=== PATIENT | female | born 1995 | race Caucasian/White ===

== ENCOUNTER 2018-08-02 18:02 | Emergency (ER) | payer OTHER ==
[2018-08-02 18:11] VITALS: RESP 16
[2018-08-02] MEDS ORDERED: SODIUM CHLORIDE 0.9% 1,000 ML IV STA (18:54)
[2018-08-02] MEDS ORDERED: ONDANSETRON 4 MG/2 ML VIAL IVP STA (19:20)
[2018-08-02 19:27] LABS: Basophils # (A) 0.1 k/uL (0-0.2); Basophils % (A) 1 %; Eosinophils # (A) 0.2 k/uL (0-0.7); Eosinophils % (A) 2 %; HCT 38.3 % (34.0-46.0); Lymphocytes # (A) 2.4 k/uL (1.0-4.8); Lymphocytes % (A) 23 %; MCV 91.2 fL (80.0-100.0); Mean Platelet Volume 7.1; Monocytes # (A) 0.6 k/uL (0-1.0); Monocytes % (A) 6 %; Neutrophils # (A) 6.8 k/uL (1.3-7.7); Neutrophils % (A) 65 %; Platelet Count 339 k/uL (150-450); RDW 12.9 % (11.5-15.5); WBC 10.4 k/uL (3.8-10.6)
[2018-08-02 19:35] LABS: ALT 28 U/L (9-52); AST 20 U/L (14-36); Albumin 4.2 g/dL (3.5-5.0); Alkaline Phosphatase 46 U/L (38-126); Anion Gap 9 mmol/L; Blood Urea Nitrogen 12 mg/dL (7-17); Calcium 9.7 mg/dL (8.4-10.2); Carbon Dioxide 25 mmol/L (22-30); Chloride 105 mmol/L (98-107); Glucose 82 mg/dL (74-99); Potassium 4.2 mmol/L (3.5-5.1); Sodium 139 mmol/L (137-145); Total Bilirubin 0.5 mg/dL (0.2-1.3); Total Protein 7.4 g/dL (6.3-8.2)
--- NOTE | 2018-08-02 20:14 | ED ---
General Adult HPI - General Chief complaint: Nausea/Vomiting/Diarrhea Stated complaint: 10wks preg, vomiting Time Seen by Provider: 08/02/18 18:28 Source: patient, RN notes reviewed Mode of arrival: ambulatory Limitations: no limitations - History of Present Illness Initial comments: 22-year-old female currently 10 weeks presents for a chief complaint of nausea and vomiting 2 days. Patient states she has vomited 6 times today. She is unable to keep down solid foods but has been able to keep down liquids. Patient also states she has lower abdominal cramping or significant pain. She denies any vaginal bleeding. Patient has not had a confirmed intrauterine . Patient has seen OB for this and is taking vitamins. Patient states her CHIEF PROGRAM OFFICER Dr. Griffin did give her a prescription for Zofran but she could not get it filled due to her insurance. Patient has no other complaints at this time including shortness of breath, chest pain, headache, or visual changes. - Related Data Home Medications Medication Instructions Recorded Confirmed No Known Home Medications 08/02/18 08/02/18 Allergies Allergy/AdvReac Type Severity Reaction Status Date / Time benzoyl peroxide Allergy Rash/Hives Verified 08/02/18 18:53 Review of Systems ROS Statement: Those systems with pertinent positive or pertinent negative responses have been documented in the HPI. ROS Other: All systems not noted in ROS Statement are negative. Past Medical History Past Medical History: Asthma Additional Past Medical History / Comment(s): hx. gastroschisis, having abd. pain, N/V @times, decreased appetite recently History of Any Multi-Drug Resistant Organisms: None Reported Additional Past Surgical History / Comment(s): plastic surgery for abdominal scarring, gastroschisis repair Past Anesthesia/Blood Transfusion Reactions: No Reported Reaction Past Psychological History: No Psychological Hx Reported Smoking Status: Current every day smoker Past Alcohol Use History: None Reported Past Drug Use History: None Reported - Past Family History Mother Family Medical History: No Reported History General Exam Limitations: no limitations General appearance: alert, in no apparent distress Head exam: Present: atraumatic, normocephalic, normal inspection Eye exam: Present: normal appearance, PERRL, EOMI. Absent: scleral icterus, conjunctival injection, periorbital swelling ENT exam: Present: normal exam, mucous membranes moist Neck exam: Present: normal inspection, full ROM. Absent: tenderness, meningismus, lymphadenopathy Respiratory exam: Present: normal lung sounds bilaterally. Absent: respiratory distress, wheezes, rales, rhonchi, stridor Cardiovascular Exam: Present: regular rate, normal rhythm, normal heart sounds. Absent: systolic murmur, diastolic murmur, rubs, gallop, clicks GI/Abdominal exam: Present: soft, normal bowel sounds. Absent: distended, tenderness (No significant tenderness on exam, no guarding or rebound. Abdomen is soft.), guarding, rebound, rigid Neurological exam: Present: alert, oriented X3, CN II-XII intact Psychiatric exam: Present: normal affect, normal mood Course Vital Signs 08/02/18 18:09 Temperature 99.4 F Pulse Rate 94 Respiratory 16 Rate Blood Pressure 129/63 O2 Sat by Pulse 99 Oximetry Medical Decision Making - Medical Decision Making 22-year-old female presents to the emergency department for a chief complaint of nausea and vomiting. Patient is a currently 10 weeks . Patient has seen CHIEF PROGRAM OFFICER but has not yet had an ultrasound or confirmed IUP. She is also complaining about cramping. Patient states her CHIEF PROGRAM OFFICER called her in some Zofran but she could not fill this due to her insurance. I did discuss the patient that no medications are 100% safe during for nausea the patient would prefer to have Zofran at this time. This was given. Patient is not actively vomiting, by mouth challenge past. CBC and CMP are unremarkable. Urine does not show an significant evidence of infection but will be cultured. Ultrasound shows a viable intrauterine with a heart rate of 165 corresponding with 10 week 1 day. Patient will follow up with her CHIEF PROGRAM OFFICER doctor Elias for nausea control and return if she has any worsening symptoms. - Lab Data Result diagrams: 08/02/18 19:06 08/02/18 19:06 Lab Results 08/02/18 08/02/18 08/02/18 Range/Units 19:06 19:06 20:14 WBC 10.4 (3.8-10.6) k/uL RBC 4.20 (3.80-5.40) m/uL Hgb 13.0 (11.4-16.0) gm/dL Hct 38.3 (34.0-46.0) % MCV 91.2 (80.0-100.0) fL MCH 31.0 (25.0-35.0) pg MCHC 34.0 (31.0-37.0) g/dL RDW 12.9 (11.5-15.5) % Plt Count 339 (150-450) k/uL Neutrophils % 65 % Lymphocytes % 23 % Monocytes % 6 % Eosinophils % 2 % Basophils % 1 % Neutrophils # 6.8 (1.3-7.7) k/uL Lymphocytes # 2.4 (1.0-4.8) k/uL Monocytes # 0.6 (0-1.0) k/uL Eosinophils # 0.2 (0-0.7) k/uL Basophils # 0.1 (0-0.2) k/uL Sodium 139 (137-145) mmol/L Potassium 4.2 (3.5-5.1) mmol/L Chloride 105 (98-107) mmol/L Carbon Dioxide 25 (22-30) mmol/L Anion Gap 9 mmol/L BUN 12 (7-17) mg/dL Creatinine 0.50 L (0.52-1.04) mg/dL Est GFR (CKD-EPI)AfAm >90 (>60 ml/min/1.73 sqM) Est GFR (CKD-EPI)NonAf >90 (>60 ml/min/1.73 sqM) Glucose 82 (74-99) mg/dL Calcium 9.7 (8.4-10.2) mg/dL Total Bilirubin 0.5 (0.2-1.3) mg/dL AST 20 (14-36) U/L ALT 28 (9-52) U/L Alkaline Phosphatase 46 (38-126) U/L Total Protein 7.4 (6.3-8.2) g/dL Albumin 4.2 (3.5-5.0) g/dL HCG, Quant 45365.0 mIU/mL Urine Color Yellow Urine Appearance Cloudy H (Clear) Urine pH 6.5 (5.0-8.0) Ur Specific [place] 1.018 (1.001-1.035) Urine Protein Negative (Negative) Urine Glucose (UA) Negative (Negative) Urine Ketones Negative (Negative) Urine Blood Negative (Negative) Urine Nitrite Negative (Negative) Urine Bilirubin Negative (Negative) Urine Urobilinogen <2.0 (<2.0) mg/dL Ur Leukocyte Esterase Negative (Negative) Urine RBC 1 (0-5) /hpf Urine WBC 7 H (0-5) /hpf Ur Squamous Epith Cells 3 (0-4) /hpf Urine Mucus Few H (None) /hpf Disposition Clinical Impression: Nausea and vomiting during , Abdominal pain affecting Disposition: HOME SELF-CARE Condition: Good Instructions (If sedation given, give patient instructions): Nausea and Vomiting in (ED), Abdominal Pain in (ED) Additional Instructions: Please follow up with primary care and CHIEF PROGRAM OFFICER in 1-2 days. Please return to the emergency department if you have any worsening symptoms. Is patient prescribed a controlled substance at d/c from ED?: No Referrals: Tianna Akhtar MD [Primary Care Provider] - 1-2 days Savannah Griffin MD [REFERRING] - 1-2 days Time of Disposition: 20:43
[2018-08-02 20:21] LABS: Appearance,Urine Cloudy (Clear); Bilirubin,Urine Negative (Negative); Blood,Urine Negative (Negative); Color,Urine Yellow; Glucose,Urine (UA) Negative (Negative); Ketones,Urine Negative (Negative); Leukocyte Esterase,Urine Negative (Negative); Mucus,Urine Few /hpf; Nitrite,Urine Negative (Negative); PH, Urine 6.5 (5.0-8.0); Protein,Urine Negative (Negative); RBC,Urine 1 /hpf (0-5); Specific Gravity,Urine 1.018 (1.001-1.035); Squamous Epithelial Cell,Urine 3 /hpf (0-4); Urobilinogen,Urine <2.0 mg/dL (<2.0); WBC,Urine 7 /hpf (0-5)
--- NOTE | 2018-08-02 20:33 | US ---
EXAMINATION TYPE: Transabdominal DATE OF EXAM: 10/13/17 COMPARISON: NONE CLINICAL HISTORY: Pain. Vomiting EXAM PERFORMED: Transabdominal (TA) EXAM MEASUREMENTS: GESTATIONAL AGE / DATING Physician Established: Not yet established Dates by LMP: LMP unknown Dates by First Scan: No previous this is first scan ( Dates by Current Scan for: (10 weeks/1 days) EDC: 02/27/2019 MATERNAL ANATOMY Uterus: 11.4 x 6.4 x 7.5 cm RT ovary: 3.0 x 1.8 x 1.7cm. LT ovary: 3.5 x 2.5 x 2.9 cm. Post CDS / Adnexa: wnl Presence of free fluid: no Presence of corpus luteal cyst: Yes left ovary 2.3 x 1.4 x 1.7cm. GESTATION / SURVEY CRL: 3.31 cm 10w1d IUP: Viable IUP Beta HcG (if available): Not available at this time IMPRESSION: VIABLE IUP WITH HR 165 BPM, CORRESPONDING WITH 10W 1D, WITH CARY 02/27/2019.
[2018-08-02 21:32] VITALS: BP 118/66; PULSE 72; TEMP 97.5
== END 2018-08-02 21:34 | disposition home or self-care (01) ==
LOC: EC 18:02
DX: O21.9 Vomiting of pregnancy, unspecified (principal); O99.89 Other specified diseases and conditions complicating pregnancy, childbirth and the puerperium; R10.30 Lower abdominal pain, unspecified; R19.7 Diarrhea, unspecified; O99.331 Smoking (tobacco) complicating pregnancy, first trimester; F17.200 Nicotine dependence, unspecified, uncomplicated; Z3A.10 10 weeks gestation of pregnancy; Z88.8 Allergy status to other drugs, medicaments and biological substances; Z87.738 Personal history of other specified (corrected) congenital malformations of digestive system; Z98.890 Other specified postprocedural states
CPT/HCPCS: 36415; 80053; 85025; 81001; 84702; 76801; 99284; 96374; 96361 ×2; J2405

== ENCOUNTER 2018-08-14 11:59 | Emergency (ER) | payer OTHER ==
[2018-08-14 12:05] VITALS: RESP 18
[2018-08-14] MEDS ORDERED: ALBUTEROL NEBULIZED 2.5 MG/3 ML INHALATION STA (12:11)
--- NOTE | 2018-08-14 12:14 | ED ---
URI HPI - General Chief Complaint: Upper Respiratory Infection Stated Complaint: Cough, vomiting Time Seen by Provider: 08/14/18 12:05 Source: patient, RN notes reviewed Mode of arrival: ambulatory Limitations: no limitations - History of Present Illness Initial Comments: 22-year-old female presents emergency Department chief complaint cough congestion body aches. Patient states symptoms started 2 days ago. Patient states that she aches all over. Patient states that she's been taken Tylenol at home no [id number] cough and cold medications no sick contacts. Denies any neck pain, neck stiffness, sore throat. She does have a large amount nasal congestion. Patient states that she's felt febrile home but has been taken Tylenol. - Related Data Home Medications Medication Instructions Recorded Confirmed Rbb-Mgdx-Rgovg Acid 1 cap PO AC-LUNCH 08/14/18 08/14/18 [-U Capsule (formulary)] Allergies Allergy/AdvReac Type Severity Reaction Status Date / Time benzoyl peroxide Allergy Rash/Hives Verified 08/14/18 12:31 Review of Systems ROS Statement: Those systems with pertinent positive or pertinent negative responses have been documented in the HPI. ROS Other: All systems not noted in ROS Statement are negative. Past Medical History Past Medical History: Asthma Additional Past Medical History / Comment(s): hx. gastroschisis, having abd. pain, N/V @times, decreased appetite recently History of Any Multi-Drug Resistant Organisms: None Reported Additional Past Surgical History / Comment(s): plastic surgery for abdominal scarring, gastroschisis repair Past Anesthesia/Blood Transfusion Reactions: No Reported Reaction Past Psychological History: No Psychological Hx Reported Smoking Status: Current every day smoker Past Alcohol Use History: None Reported Past Drug Use History: None Reported - Past Family History Mother Family Medical History: No Reported History General Exam Limitations: no limitations General appearance: alert, in no apparent distress Head exam: Present: atraumatic, normocephalic, normal inspection Eye exam: Present: normal appearance, PERRL, EOMI. Absent: scleral icterus, conjunctival injection, periorbital swelling ENT exam: Present: normal exam, normal oropharynx, mucous membranes moist, TM's normal bilaterally, normal external ear exam Neck exam: Present: normal inspection, full ROM. Absent: tenderness, meningismus, lymphadenopathy Respiratory exam: Present: normal lung sounds bilaterally. Absent: respiratory distress, wheezes, rales, rhonchi, stridor Cardiovascular Exam: Present: regular rate, normal rhythm, normal heart sounds. Absent: systolic murmur, diastolic murmur, rubs, gallop, clicks GI/Abdominal exam: Present: soft, normal bowel sounds. Absent: distended, tenderness, guarding, rebound, rigid Neurological exam: Present: alert, oriented X3, CN II-XII intact Skin exam: Present: warm, dry, intact, normal color. Absent: rash Course Vital Signs 08/14/18 12:03 Temperature 98.0 F Pulse Rate 91 Respiratory 18 Rate Blood Pressure 113/79 O2 Sat by Pulse 99 Oximetry Medical Decision Making - Medical Decision Making 22-year-old female presents emergency Department for cough congestion. Patient has influenza A positive. Chest x-ray obtained no acute abnormality. Patient was counseled in detail greater than 3 minutes were smoking sensation. Return parameters were discussed. - Lab Data Lab Results 08/14/18 Range/Units 12:30 Influenza Type A RNA Detected H (Not Detectd) Influenza Type B (PCR) Not Detected (Not Detectd) Disposition Clinical Impression: Influenza Disposition: HOME SELF-CARE Condition: Stable Instructions (If sedation given, give patient instructions): Influenza (ED) Additional Instructions: Please return to the Emergency Department if symptoms worsen or any other concerns. Is patient prescribed a controlled substance at d/c from ED?: No Referrals: None,Stated [Primary Care Provider] - 1-2 days Time of Disposition: 13:20
--- NOTE | 2018-08-14 12:21 | XR ---
EXAMINATION TYPE: XR chest 2V DATE OF EXAM: 08/14/2018 COMPARISON: Chest x-ray March 18, 2015. HISTORY: Cough and flulike symptoms for 3 days. TECHNIQUE: Frontal and lateral views of the chest are obtained. FINDINGS: There is no focal air space opacity, pleural effusion, or pneumothorax seen. The cardiac silhouette size is within normal limits. The osseous structures are intact. IMPRESSION: No suspicious new acute pulmonary process.
[2018-08-14 14:04] VITALS: BP 110/72; PULSE 78; TEMP 98.2
== END 2018-08-14 13:55 | disposition home or self-care (01) ==
LOC: EC 11:59
DX: O99.511 Diseases of the respiratory system complicating pregnancy, first trimester (principal); J10.1 Influenza due to other identified influenza virus with other respiratory manifestations; Z71.6 Tobacco abuse counseling; J45.909 Unspecified asthma, uncomplicated; O99.331 Smoking (tobacco) complicating pregnancy, first trimester; F17.200 Nicotine dependence, unspecified, uncomplicated; Z88.1 Allergy status to other antibiotic agents; Z3A.12 12 weeks gestation of pregnancy
CPT/HCPCS: 71046; 87502; 94640; 99284; 99406

== ENCOUNTER 2018-12-23 21:31 | Emergency (ER) | payer OTHER ==
[2018-12-23 21:38] VITALS: RESP 16; TEMP 97.5
[2018-12-23] MEDS ORDERED: ACETAMINOPHEN TAB 325 MG TAB PO STA (22:25)
--- NOTE | 2018-12-23 23:08 | XR ---
History: ITS.REASON XR Reason: Pain Exam: XR RIGHT FOOT 3 views Comparison: None available FINDINGS: Bipartite appearing medial first metatarsal sesamoid may represent fracture or development variant, clinically correlate. Otherwise no evidence of fracture or dislocation. 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 IMPRESSION: Bipartite appearing medial first metatarsal sesamoid may represent fracture or development variant, clinically correlate. Otherwise no evidence of fracture or dislocation.
[2018-12-23 23:15] VITALS: BP 101/68; PULSE 98
--- NOTE | 2018-12-23 23:27 | ED ---
General Adult HPI - General Chief complaint: Extremity Injury, Lower Stated complaint: R foot pain Time Seen by Provider: 12/23/18 21:53 Source: patient, RN notes reviewed, old records reviewed Mode of arrival: ambulatory Limitations: no limitations - History of Present Illness Initial comments: 23-year-old female patient with no pertinent past medical history, , 30 weeks gestation parents ED with right foot pain. Patient worse this been ongoing for approximately 1 week. Patient denies any injury. Patient denies any abdominal pain any vaginal bleeding a nausea vomiting diarrhea, chest pain shortness of breath. Systemic: Pt denies fatigue, fever/chills, rash. Pt denies weakness, night sweats, weight loss. Neuro: Pt denies headache, visual disturbances, syncope or pre-syncope. HEENT: Pt denies ocular discharge or irritation, otalgia, rhinorrhea, pharyngitis or notable lymphadenopathy. Cardiopulmonary: Pt denies chest pain, SOB, heart palpitations, dyspnea on exertion. Abdominal/GI: Pt denies abdominal pain, n/v/d. : Pt denies dysuria, burning w/ urination, frequency/urgency. Denies new onset urinary or bowel incontinence. MSK: Pt denies loss of strength or function in extremities. Neuro: Pt denies new onset weakness, paresthesias. - Related Data Home Medications Medication Instructions Recorded Confirmed Mrx-Ejfr-Egapn Acid 1 cap PO AC-LUNCH 08/14/18 08/14/18 [-U Capsule (formulary)] Allergies Allergy/AdvReac Type Severity Reaction Status Date / Time benzoyl peroxide Allergy Rash/Hives Verified 12/23/18 21:38 Review of Systems ROS Statement: Those systems with pertinent positive or pertinent negative responses have been documented in the HPI. ROS Other: All systems not noted in ROS Statement are negative. Past Medical History Past Medical History: Asthma Additional Past Medical History / Comment(s): hx. gastroschisis, having abd. pain, N/V @times, decreased appetite recently History of Any Multi-Drug Resistant Organisms: None Reported Additional Past Surgical History / Comment(s): plastic surgery for abdominal s carring, gastroschisis repair Past Anesthesia/Blood Transfusion Reactions: No Reported Reaction Past Psychological History: No Psychological Hx Reported Smoking Status: Former smoker Past Alcohol Use History: None Reported Past Drug Use History: None Reported - Past Family History Mother Family Medical History: No Reported History General Exam - General Exam Comments Initial Comments: Constitutional: NAD, AOX3, Pt has pleasant affect. HEENT: NC/AT, trachea midline, neck supple, no lymphadenopathy. Posterior pharynx non erythematous, without exudates. External ears appear normal, without discharge. Mucous membranes moist. Eyes PERRLA, EOM intact. There is no scleral icterus. No pallor noted. Cardiopulmonary: RRR, no murmurs, rubs or gallops, no JVD noted. Lungs CTAB in anterior and posterior singh. No peripheral edema. Abdominal exam: Abdomen soft and non-distended. Abdomen non-tender to palpation in all 4 quadrants. Bowel sounds active in LLQ. No hepatosplenomegaly. No ecchymosis Neuro: CN II-XII grossly intact. No nuchal rigidity. No raccon eyes, no pittman sign, no hemotympanum. No cervical spinal tenderness. MSK: Right Anterior midfoot mildly tender to palpation. No erythema, no ecchymoses. Distal pulses intact and equal. Capillary refill less than 2 seconds. No tibia-fibula tenderness. No posterior calf tenderness bilaterally, homans sign negative bilaterally. Posterior tibialis and radial pulse +2 bilaterally. Sensation intact in upper and lower extremities. Full active ROM in upper and lower extremities, 5/5 stregnth. Limitations: no limitations Course Vital Signs 12/23/18 12/23/18 21:36 23:14 Temperature 97.5 F L Pulse Rate 129 H 98 Respiratory 16 16 Rate Blood Pressure 122/77 101/68 O2 Sat by Pulse 98 99 Oximetry Medical Decision Making - Medical Decision Making 23-year-old female patient with no pertinent past medical history, , 30 weeks gestation parents ED with right foot pain. Patient worse this been ongoing for approximately 1 week. Patient denies any injury. Patient denies any abdominal pain any vaginal bleeding a nausea vomiting diarrhea, chest pain shortness of breath. Patient vital signs initially display tachycardia likely secondary to pain. Patient reported that she is just in pain after walking. Repeat heart rate displayed heart rate of 84. Vital signs stable at discharge. Physical exam displayed: Right Anterior midfoot mildly tender to palpation. No erythema, no ecchymoses. Distal pulses intact and equal. Capillary refill less than 2 seconds. No tibia-fibula tenderness. Plain film of foot displayed bipartite appearance of medial first metatarsal sesamoid may represent fracture or development variant. Otherwise no evidence of fracture dislocation. She is not tender in this region. Patient placed in postop walking shoe. Patient will be discharged with orthopedic follow-up. Patient will return to ER if patient worsens. Case discussed with Dr. White. Disposition Clinical Impression: Arthralgia Disposition: HOME SELF-CARE Condition: Stable Instructions (If sedation given, give patient instructions): Foot Sprain (ED) Additional Instructions: Patient to adhere to previously discussed treatment plan and will take medication(s) as directed. Patient to follow up with PCP in 1-2 days. Patient to return to ED if symptoms do not improve. Follow-up with primary care provider orthopedic consult 1-2 days. Return to ER if condition worsens in any way. Is patient prescribed a controlled substance at d/c from ED?: No Referrals: None,Stated [Primary Care Provider] - 1-2 days Jose Chavez DO [Medical Doctor] - 1-2 days
== END 2018-12-23 23:54 | disposition home or self-care (01) ==
LOC: EC 21:31
DX: O99.89 Other specified diseases and conditions complicating pregnancy, childbirth and the puerperium (principal); M79.671 Pain in right foot; Z3A.30 30 weeks gestation of pregnancy; Z87.891 Personal history of nicotine dependence; Z88.8 Allergy status to other drugs, medicaments and biological substances
CPT/HCPCS: 99284

== ENCOUNTER → 2022-03-12 | Outpatient (CLI) | payer OTHER ==
--- NOTE | 2022-03-12 15:56 | US ---
EXAMINATION TYPE: US OB >= 14 wk fetus DATE OF EXAM: 03/12/2022 COMPARISON: None CLINICAL HISTORY: [id number] EFW TECHNIQUE: Transabdominal (TA) GESTATIONAL AGE / DATING Physician Established: (35 weeks/1 days) EDC: 04/15/2022 Dates by LMP: LMP unknown Dates by First Scan: No previous here Dates by Current Scan: (35 weeks/5 days) EDC: 04/11/2022 SURVEY IUP: Single PLACENTA: Posterior PREVIA: No Previa RICHARD: 12.4 cm Normal CERVICAL LENGTH (transabdominal: norm > 3.0cm): 3.6 cm BIOMETRY PRESENTATION: Vertex LIE: Longitudinal BPD: 8.5 cm 34 weeks / 3 days HC: 32.6 cm 37 weeks / 0 days AC: 31.7 cm 35 weeks / 5 days FL: 6.9 cm 35 weeks / 2 days ESTIMATED WEIGHT IN GRAMS: 2690 grams ESTIMATED WEIGHT IN LBS/OZ: 5 lbs. 15 oz. WEIGHT PERCENTAGE BASED ON ESTABLISHED DATES: 58% HC/AC: 1.03 Normal FL/AC: 22% Normal HEART RATE: 152 bpm RHYTHM: Normal IMPRESSION: Single viable uterine .
== END | disposition home or self-care (01) ==
LOC: RADUSWWP 15:01
PROVIDERS: ATTEND Obstetrics & Gynecology
DX: O36.5939 Maternal care for other known or suspected poor fetal growth, third trimester, other fetus (principal); Z3A.35 35 weeks gestation of pregnancy
CPT/HCPCS: 76805

== ENCOUNTER 2024-01-27 10:09 | Emergency (ER) | payer OTHER ==
[2024-01-27 10:17] VITALS: TEMP 98
--- NOTE | 2024-01-27 10:23 | ED ---
Female Urogenital HPI - General Chief complaint: Vaginal Bleeding Stated complaint: 8 wks preg,bleeding Time Seen by Provider: 01/27/24 10:17 Source: patient, RN notes reviewed Mode of arrival: ambulatory Limitations: no limitations - History of Present Illness Initial comments: 28-year-old female presents emergency department chief complaint of vaginal bleeding early . Patient states she has some spotting 2 weeks ago which subsided she has had a few other episodes where it starts and stops. She denies any significant pain she has minimal cramping patient is G6, proximately 8 weeks she states she called her SPECIAL EQUIPMENT TECHNICIAN out of [place] who advised her to be seen in the emergency department. Patient denies any dysuria or any other associated symptoms patient is A+ blood type - Related Data Home Medications Medication Instructions Recorded Confirmed Yjo-Ulna-Bzaoo Acid 1 cap PO AC-LUNCH 08/14/18 08/14/18 [-U Capsule (formulary)] Allergies Allergy/AdvReac Type Severity Reaction Status Date / Time benzoyl peroxide Allergy Rash/Hives Verified 01/27/24 10:18 latex Allergy Rash/Hives Verified 01/27/24 10:18 Penicillins Allergy Rash/Hives Verified 01/27/24 10:18 Review of Systems ROS Statement: Those systems with pertinent positive or pertinent negative responses have been documented in the HPI. ROS Other: All systems not noted in ROS Statement are negative. Past Medical History Past Medical History: Asthma Additional Past Medical History / Comment(s): hx. gastroschisis, having abd. louann n, N/V @times, decreased appetite recently History of Any Multi-Drug Resistant Organisms: None Reported Additional Past Surgical History / Comment(s): plastic surgery for abdominal scarring, gastroschisis repair Past Anesthesia/Blood Transfusion Reactions: No Reported Reaction Past Psychological History: No Psychological Hx Reported Smoking Status: Never smoker Past Alcohol Use History: None Reported Past Drug Use History: None Reported - Past Family History Mother Family Medical History: No Reported History General Exam - General Exam Comments Initial Comments: Visual Physical Exam Vital signs reviewed General: Well-appearing, nontoxic, no acute distress. Head: Normocephalic, atraumatic Eyes: PERRLA, EOMI ENT: Airway patent Chest: Nonlabored breathing Skin: No visual rash, normal skin tone Neuro: Alert and oriented 3 Musculoskeletal: No gross abnormalities Limitations: no limitations General appearance: alert, in no apparent distress Head exam: Present: atraumatic, normocephalic, normal inspection Neck exam: Present: normal inspection. Absent: tenderness, meningismus, lymphadenopathy Respiratory exam: Present: normal lung sounds bilaterally. Absent: respiratory distress, wheezes, rales, rhonchi, stridor Cardiovascular Exam: Present: regular rate, normal rhythm, normal heart sounds. Absent: systolic murmur, diastolic murmur, rubs, gallop, clicks GI/Abdominal exam: Present: soft, normal bowel sounds. Absent: distended, tenderness, guarding, rebound, rigid Course Vital Signs 01/27/24 01/27/24 10:16 12:38 Temperature 98 F Pulse Rate 95 70 Respiratory 20 18 Rate Blood Pressure 128/70 122/68 O2 Sat by Pulse 99 99 Oximetry Medical Decision Making - Medical Decision Making I completed the quick note portion of this chart signed [place] PA-C Was pt. sent in by a medical professional or institution (, CASIE, NUTRITIONAL SERVICES DIRECTOR, urgent care, hospital, or skilled nursing...) When possible be specific @ -No Did you speak to anyone other than the patient for history (EMS, parent, family, police, friend...)? What history was obtained from this source @ -No Did you review nursing and triage notes (agree or disagree)? Why? @ -I reviewed and agree with nursing and triage notes Were old charts reviewed (outside hosp., previous admission, EMS record, old EKG, old radiological studies, urgent care reports/EKG's, skilled nursing records)? Report findings @ -No old charts were reviewed Differential Diagnosis (chest pain, altered mental status, abdominal pain women, abdominal pain men, vaginal bleeding, weakness, fever, dyspnea, syncope, headache, dizziness, GI bleed, back pain, seizure, CVA, palpatations, mental health, musculoskeletal)? @Differential Vaginal Bleeding: Spontaneous , threatened , molar , ectopic , bloody show, incompetent cervix, abruptioplacenta, placenta previa, uterine rupture, dysfunctional uterine bleeding, hemorrhage, uterine fibroids, this is not meant to be an all-inclusive list. EKG interpreted by me (3pts min.). @ -None X-rays interpreted by me (1pt min.). @ -None done CT interpreted by me (1pt min.). @ -None done U/S interpreted by me (1pt. min.). @ -Altered sound showing gestational sac at 6 weeks and 2 days smaller than EDC, concern for early demise What testing was considered but not performed or refused? (CT, X-rays, U/S, labs)? Why? @ -None What meds were considered but not given or refused? Why? @ -None Did you discuss the management of the patient with other professionals (professionals i.e. , PA, NUTRITIONAL SERVICES DIRECTOR, lab, RT, psych nurse, licensed clinical social worker, flame hardening machine operator, teacher, residential care officer, foster care case manager)? Give summary @ -No Was smoking cessation discussed for >3mins.? @ -No Was critical care preformed (if so, how long)? @ -No Were there social determinants of health that impacted care today? How? (Homelessness, low income, unemployed, alcoholism, drug addiction, transportation, low edu. Level, literacy, decrease access to med. care, nursing home, rehab)? @ -No Was there de-escalation of care discussed even if they declined (Discuss DNR or withdrawal of care, Hospice)? DNR status @ -No What co-morbidities impacted this encounter? (DM, HTN, Smoking, COPD, CAD, Cancer, CVA, ARF, Chemo, Hep., AIDS, mental health diagnosis, sleep apnea, morbid obesity)? @ -None Was patient admitted / discharged? Hospital course, mention meds given and route, prescriptions, significant lab abnormalities, going to OR and other pertinent info. @ -Patient updated on ultrasound findings concerning for mise versus early gestational sac will have repeat hCG in 2 days patient is A+ blood type recommended follow-up with SPECIAL EQUIPMENT TECHNICIAN. Undiagnosed new problem with uncertain prognosis? @ -No Drug Therapy requiring intensive monitoring for toxicity (Heparin, Nitro, Insulin, Cardizem)? @ -No Were any procedures done? @ -No Diagnosis/symptom? @ -Threatened miscarriage Acute, or Chronic, or Acute on Chronic? @ -Acute Uncomplicated (without systemic symptoms) or Complicated (systemic symptoms)? @ -Uncomplicated Side effects of treatment? @ -No Exacerbation, Progression, or Severe Exacerbation? @ -No Poses a threat to life or bodily function? How? (Chest pain, [place], [place], pneumonia, PE, COPD, DKA, ARF, appy, cholecystitis, CVA, Diverticulitis, Homicidal, Suicidal, threat to staff... and all critical care pts) @ -No - Lab Data Result diagrams: 01/27/24 10:21 01/27/24 10:21 Lab Results 01/27/24 01/27/24 01/27/24 Range/Units 10:21 10:21 10:21 WBC 10.8 H (3.8-10.6) k/uL RBC 4.16 (3.80-5.40) m/uL Hgb 12.1 (11.4-16.0) gm/dL Hct 38.4 (34.0-46.0) % MCV 92.2 (80.0-100.0) fL MCH 29.0 (25.0-35.0) pg MCHC 31.5 (31.0-37.0) g/dL RDW 14.7 (11.5-15.5) % Plt Count 361 (150-450) k/uL MPV 8.2 Neutrophils % 68 % Lymphocytes % 23 % Monocytes % 5 % Eosinophils % 2 % Basophils % 1 % Neutrophils # 7.3 (1.3-7.7) k/uL Lymphocytes # 2.5 (1.0-4.8) k/uL Monocytes # 0.5 (0-1.0) k/uL Eosinophils # 0.2 (0-0.7) k/uL Basophils # 0.1 (0-0.2) k/uL Sodium 139 (137-145) mmol/L Potassium 3.7 (3.5-5.1) mmol/L Chloride 108 H (98-107) mmol/L Carbon Dioxide 22 (22-30) mmol/L Anion Gap 9 mmol/L BUN 10 (7-17) mg/dL Creatinine 0.60 (0.52-1.04) mg/dL Est GFR (CKD-EPI)AfAm >90 (>60 ml/min/1.73 sqM) Est GFR (CKD-EPI)NonAf >90 (>60 ml/min/1.73 sqM) Glucose 117 H (74-99) mg/dL Calcium 9.7 (8.4-10.2) mg/dL Total Bilirubin 0.4 (0.2-1.3) mg/dL AST 20 (14-36) U/L ALT 11 (4-34) U/L Alkaline Phosphatase 44 (38-126) U/L Total Protein 7.3 (6.3-8.2) g/dL Albumin 4.4 (3.5-5.0) g/dL HCG, Quant 4538.4 mIU/mL Urine Color Light Yellow Urine Appearance Clear (Clear) Urine pH 5.5 (5.0-8.0) Ur Specific [place] 1.017 (1.001-1.035) Urine Protein Negative (Negative) Urine Glucose (UA) Negative (Negative) Urine Ketones Negative (Negative) Urine Blood Moderate H (Negative) Urine Nitrite Negative (Negative) Urine Bilirubin Negative (Negative) Urine Urobilinogen <2.0 (<2.0) mg/dL Ur Leukocyte Esterase Negative (Negative) Urine RBC <1 (0-5) /hpf Urine WBC <1 (0-5) /hpf Ur Squamous Epith Cells 2 (0-4) /hpf Urine Mucus Occasional H (None) /hpf Disposition Clinical Impression: Threatened miscarriage in early Disposition: HOME SELF-CARE Condition: Stable Additional Instructions: Please return to the Emergency Department if symptoms worsen or any other concerns. Is patient prescribed a controlled substance at d/c from ED?: No Referrals: None,Stated [Primary Care Provider] - 1-2 days Time of Disposition: 12:35
[2024-01-27 10:35] LABS: Basophils # (A) 0.1 k/uL (0-0.2); Basophils % (A) 1 %; Eosinophils # (A) 0.2 k/uL (0-0.7); Eosinophils % (A) 2 %; HCT 38.4 % (34.0-46.0); HGB 12.1 gm/dL (11.4-16.0); Lymphocytes # (A) 2.5 k/uL (1.0-4.8); Lymphocytes % (A) 23 %; MCHC 31.5 g/dL (31.0-37.0); MCV 92.2 fL (80.0-100.0); Mean Platelet Volume 8.2; Monocytes # (A) 0.5 k/uL (0-1.0); Monocytes % (A) 5 %; Neutrophils # (A) 7.3 k/uL (1.3-7.7); Neutrophils % (A) 68 %; Platelet Count 361 k/uL (150-450); RBC 4.16 m/uL (3.80-5.40); RDW 14.7 % (11.5-15.5); WBC 10.8 k/uL (3.8-10.6)
[2024-01-27 10:58] LABS: ALT 11 U/L (4-34); AST 20 U/L (14-36); African American GFR (CKD) >90 (>60 ml/min/1.73 sqM); Albumin 4.4 g/dL (3.5-5.0); Alkaline Phosphatase 44 U/L (38-126); Anion Gap 9 mmol/L; Blood Urea Nitrogen 10 mg/dL (7-17); Calcium 9.7 mg/dL (8.4-10.2); Carbon Dioxide 22 mmol/L (22-30); Chloride 108 mmol/L (98-107); Glucose 117 mg/dL (74-99); Non-African American GFR(CKD) >90 (>60 ml/min/1.73 sqM); Potassium 3.7 mmol/L (3.5-5.1); Sodium 139 mmol/L (137-145); Total Bilirubin 0.4 mg/dL (0.2-1.3); Total Protein 7.3 g/dL (6.3-8.2)
[2024-01-27 11:02] LABS: Appearance,Urine Clear (Clear); Bilirubin,Urine Negative (Negative); Blood,Urine Moderate (Negative); Color,Urine Light Yellow; Glucose,Urine (UA) Negative (Negative); Ketones,Urine Negative (Negative); Leukocyte Esterase,Urine Negative (Negative); Mucus,Urine Occasional /hpf; Nitrite,Urine Negative (Negative); PH, Urine 5.5 (5.0-8.0); Protein,Urine Negative (Negative); RBC,Urine <1 /hpf (0-5); Specific Gravity,Urine 1.017 (1.001-1.035); Squamous Epithelial Cell,Urine 2 /hpf (0-4); Urobilinogen,Urine <2.0 mg/dL (<2.0); WBC,Urine <1 /hpf (0-5)
[2024-01-27 11:10] LABS: HCG,Quantitative Serum 4538.4 mIU/mL
--- NOTE | 2024-01-27 12:10 | US ---
EXAMINATION TYPE: Ultrasound OB <= 14 weeks transvaginal DATE OF EXAM: 01/27/2024 11:09 AM COMPARISON: NONE CLINICAL INDICATION: Female, 28 years old with history of pain, bleeding; Pt states light vaginal ble eding x few days EXAM PERFORMED: Transvaginal (TV) and Transabdominal (TA) EXAM MEASUREMENTS: GESTATIONAL AGE / DATING Physician Established: Not yet established Dates by LMP: (8 weeks/2 days) EDC: 09/05/2024 Dates by First Scan: No previous this is first scan Dates by Current Scan for: (6 weeks/1 days) EDC: 09/20/2024 MATERNAL ANATOMY Uterus: 8.3 x 4.6 x 5.6 cm Right Ovary: 2.3 x 1.6 x 2.0 cm Left Ovary: 2.8 x 1.7 x 2.2 cm Post CDS / Adnexa: wnl Presence of free fluid: No Presence of corpus luteal cyst: Left ovary= 1.6 x 1.3 x 1.5 cm Presence of subchorionic bleed: No GESTATION / SURVEY CRL: 0.4 cm (6 weeks/1 days) MSD: wnl Yolk Sac (normal less than 6mm): 4mm Heart Rate: Unable to detect heart rate at this time by color, power, and pulsed doppler IUP: No cardiac activity noted on today's scan. Date of LMP: 11/30/2023 Beta HcG (if available): Not available at this time Candy Supervisor notes:Question possible early demise IMPRESSION: Intrauterine with estimated gestational age of 8 weeks 2 days by LMP. However, ultrasound b iometry is much smaller at 6 weeks 1 day by crown-rump length. The pole measures only 4 mm. Thi s is just below the threshold for detection of cardiac activity. We are unable to detect cardiac acti vity at this time. Short interval follow-up recommended to assess for viability and exclude dem ise.
[2024-01-27 12:39] VITALS: BP 122/68; PULSE 70; RESP 18
== END 2024-01-27 12:39 | disposition home or self-care (01) ==
LOC: EC 10:09
DX: O20.0 Threatened abortion (principal); Z88.0 Allergy status to penicillin; Z91.040 Latex allergy status; Z88.8 Allergy status to other drugs, medicaments and biological substances; Z3A.08 8 weeks gestation of pregnancy
CPT/HCPCS: 36415; 76801; 76817; 80053; 81001; 84702; 85025; 99284

== ENCOUNTER 2024-07-03 20:58 | Emergency (ER) | payer OTHER ==
--- NOTE | 2024-07-03 21:41 | ED ---
General Adult HPI - General Chief complaint: Vaginal Bleeding Stated complaint: Vaginal Bleeding, 10 Weeks Preg. Time Seen by Provider: 07/03/24 21:19 Source: patient, RN notes reviewed, old records reviewed Mode of arrival: ambulatory Limitations: no limitations - History of Present Illness Initial comments: Patient is a 28-year-old female presents emergency department complaining of vaginal bleeding and spotting in the setting of being 10 weeks with twins. Patient is G7, P4 with 2 miscarriages. States she began experiencing so me vaginal spotting for the last few days, and has yet to follow-up with her OB specialist. Did have an ultrasound confirming definitive intrauterine . Patient states she is not soaking through pads and has not noticed any clots or solid components. Is not on blood thinners. No history of clotting issues. Denies any other acute complaints at this time. Denies abdominal pain. Presents over concern for the spotting and the fact that she has been unable to follow-up with her specialist yet due to her twin gestation. - Related Data Home Medications Medication Instructions Recorded Confirmed Xsz-Mgov-Ddhnn Acid 1 cap PO AC-LUNCH 08/14/18 08/14/18 [-U Capsule (formulary)] Previous Rx's Medication Instructions Recorded Nitrofurantoin Monohyd/M-Cryst 100 mg PO Q12HR 3 Days #6 cap 07/04/24 [Macrobid] Allergies Allergy/AdvReac Type Severity Reaction Status Date / Time benzoyl peroxide Allergy Rash/Hives Verified 07/03/24 21:04 latex Allergy Rash/Hives Verified 07/03/24 21:04 Penicillins Allergy Rash/Hives Verified 07/03/24 21:04 Review of Systems ROS Statement: Those systems with pertinent positive or pertinent negative responses have been documented in the HPI. Review of Systems: CONST: Denies fever EYES: Denies blurry vision ENT: Denies nasal congestion C/V: Denies Chest pain RESP: Denies shortness of breath GI: Denies abdominal pain : Endorses vaginal spotting SKIN: Denies rash. MSK: Denies joint pain. NEURO: Denies headache ROS Other: All systems not noted in ROS Statement are negative. Past Medical History Past Medical History: Asthma Additional Past Medical History / Comment(s): hx. gastroschisis, having abd. pain, N/V @times, decreased appetite recently History of Any Multi-Drug Resistant Organisms: None Reported Additional Past Surgical History / Comment(s): plastic surgery for abdominal scarring, gastroschisis repair Past Anesthesia/Blood Transfusion Reactions: No Reported Reaction Past Psychological History: No Psychological Hx Reported Smoking Status: Never smoker Past Alcohol Use History: None Reported Past Drug Use History: None Reported - Past Family History Mother Family Medical History: No Reported History General Exam - General Exam Comments Initial Comments: General: Appears in no acute distress. HEAD: Normal with no signs of head trauma. EYES: EOMI ENT: Hearing grossly intact, normal oropharynx. RESPIRATORY: Clear breath sounds bilaterally. No wheezes, rales, or rhonchi. C/V: Regular rate and rhythm. S1 and S2 auscultated, peripheral pulses 2+ and intact throughout ABD: Abd is soft, nontender, nondistended EXT: No obvious deformity SKIN: No rashes or lesions observed on exposed skin. NEURO: Alert and oriented x 4 Limitations: no limitations Course Vital Signs 07/03/24 07/03/24 07/04/24 21:02 22:17 00:05 Temperature 98 F 98.6 F 97.8 F Pulse Rate 85 88 88 Respiratory 20 18 18 Rate Blood Pressure 109/74 110/68 106/68 O2 Sat by Pulse 99 98 98 Oximetry Medical Decision Making - Medical Decision Making Was pt. sent in by a medical professional or institution (CASIE Rodriguez, VETERINARY MANAGER, urgent care, hospital, or alf...) When possible be specific @ -No Did you speak to anyone other than the patient for history (EMS, parent, family, police, friend...)? What history was obtained from this source @ -No Did you review nursing and triage notes (agree or disagree)? Why? @ -I reviewed and agree with nursing and triage notes Were old charts reviewed (outside hosp., previous admission, EMS record, old EKG, old radiological studies, urgent care reports/EKG's, alf records)? Report findings @ -No old charts were reviewed Differential Diagnosis (chest pain, altered mental status, abdominal pain women, abdominal pain men, vaginal bleeding, weakness, fever, dyspnea, syncope, headache, dizziness, GI bleed, back pain, seizure, CVA, palpatations, mental health, musculoskeletal)? @ -Miscarriage, threatened miscarriage, vaginal spotting. This list is not all inclusive. EKG interpreted by me (3pts min.). @ -None done X-rays interpreted by me (1pt min.). @ -None done CT interpreted by me (1pt min.). @ -None done U/S interpreted by me (1pt. min.). @ -Patient's ultrasound reveals a subchorionic hemorrhage as well as a viable twin gestation with heart rates of 193 bpm and 181 bpm. Baby A is measuring 10 weeks and 4 days and baby B is measuring 10 weeks and 5 days. Subchorionic hemorrhage is present which is likely source of the patient's vaginal spotting. What testing was considered but not performed or refused? (CT, X-rays, U/S, labs)? Why? @ -None What meds were considered but not given or refused? Why? @ -None Did you discuss the management of the patient with other professionals (professionals i.e. , PA, VETERINARY MANAGER, lab, RT, psych nurse, social work instructor, furniture refinisher, teacher, sea air land officer, case finisher)? Give summary @ -No Was smoking cessation discussed for >3mins.? @ -No Was critical care preformed (if so, how long)? @ -No Were there social determinants of health that impacted care today? How? (Homelessness, low income, unemployed, alcoholism, drug addiction, transportation, low edu. Level, literacy, decrease access to med. care, snf, rehab)? @ -No Was there de-escalation of care discussed even if they declined (Discuss DNR or withdrawal of care, Hospice)? DNR status @ -No What co-morbidities impacted this encounter? (DM, HTN, Smoking, COPD, CAD, Cancer, CVA, ARF, Chemo, Hep., AIDS, mental health diagnosis, sleep apnea, morbid obesity)? @ -None Was patient admitted / discharged? Hospital course, mention meds given and route, prescriptions, significant lab abnormalities, going to OR and other pertinent info. @ -Patient presents with vaginal spotting in the setting of being 10 weeks pre gnant. Has no other symptoms. Has been ongoing for a few days. We will obtain basic laboratory studies as well as an ultrasound. She was in agreement this plan. Vital signs within acceptable limits. She has no pain. Patient's ultrasound reveals a subchorionic hemorrhage as well as a viable twin gestation with heart rates of 193 bpm and 181 bpm. Baby A is measuring 10 weeks and 4 days and baby B is measuring 10 weeks and 5 days. Subchorionic hemorrhage is present which is likely source of the patient's vaginal spotting.Laboratory studies returned remarkable for mild hypokalemia 3.1 which was replenished. Patient also has asymptomatic bacteriuria. Patient states she is Rh+ blood type and has not required RhoGAM in the past.Patient is A positive. Patient does not require RhoGAM. Updated the patient. Instructed to follow-up with her PCP and CORRECTIONAL CLASSIFICATION COUNSELOR for further imaging. Patient given a dose of potassium as well as started on Macrobid for asymptomatic bacteriuria. Patient was in agreement this plan. Strict return precautions discussed. Instructed to follow-up with her CORRECTIONAL CLASSIFICATION COUNSELOR for further imaging to monitor. Return if any worsening symptoms. I will provide the patient with a prescription for Macrobid. I instructed the patient to follow up with their PCP in the next 1-3 days.. I explained that the patient should return to the emergency department if they experience any worsening symptoms. Strict return precautions were discussed with the patient. The patient expressed understanding of these instructions. I answered all questions that the patient had. The patient was discharged home in good condition with their prescriptions and follow up information. Undiagnosed new problem with uncertain prognosis? @ -No Drug Therapy requiring intensive monitoring for toxicity (Heparin, Nitro, Insulin, Cardizem)? @ -No Were any procedures done? @ -No Diagnosis/symptom? @ -Twin gestation in first trimester, subchorionic hemorrhage, threatened miscarriage, asymptomatic bacteriuria Acute, or Chronic, or Acute on Chronic? @ -Acute Uncomplicated (without systemic symptoms) or Complicated (systemic symptoms)? @ -Complicated Side effects of treatment? @ -None Exacerbation, Progression, or Severe Exacerbation] @ -No Poses a threat to life or bodily function? @ -Unlikely at this time - Lab Data Result diagrams: 07/03/24 21:40 07/03/24 21:40 Lab Results 07/03/24 07/03/24 07/03/24 Range/Units 21:40 21:40 21:40 WBC 8.4 (3.8-10.6) k/uL RBC 3.93 (3.80-5.40) m/uL Hgb 11.5 (11.4-16.0) gm/dL Hct 33.4 L (34.0-46.0) % MCV 84.9 (80.0-100.0) fL MCH 29.3 (25.0-35.0) pg MCHC 34.6 (31.0-37.0) g/dL RDW 14.7 (11.5-15.5) % Plt Count 334 (150-450) k/uL MPV 7.9 Neutrophils % 71 % Lymphocytes % 19 % Monocytes % 6 % Eosinophils % 1 % Basophils % 0 % Neutrophils # 6.0 (1.3-7.7) k/uL Lymphocytes # 1.6 (1.0-4.8) k/uL Monocytes # 0.5 (0-1.0) k/uL Eosinophils # 0.1 (0-0.7) k/uL Basophils # 0.0 (0-0.2) k/uL PT 10.7 (10.0-12.5) sec INR 1.0 (<1.2) APTT 22.4 (22.0-30.0) sec Sodium (137-145) mmol/L Potassium (3.5-5.1) mmol/L Chloride (98-107) mmol/L Carbon Dioxide (22-30) mmol/L Anion Gap mmol/L BUN (7-17) mg/dL Creatinine (0.52-1.04) mg/dL Est GFR (CKD-EPI)AfAm (>60 ml/min/1.73 sqM) Est GFR (CKD-EPI)NonAf (>60 ml/min/1.73 sqM) Glucose (74-99) mg/dL Calcium (8.4-10.2) mg/dL Total Bilirubin (0.2-1.3) mg/dL AST (14-36) U/L ALT (4-34) U/L Alkaline Phosphatase (38-126) U/L Total Protein (6.3-8.2) g/dL Albumin (3.5-5.0) g/dL Urine Color Yellow Urine Appearance Cloudy H (Clear) Urine pH 6.0 (5.0-8.0) Ur Specific [place] 1.029 (1.001-1.035) Urine Protein Trace H (Negative) Urine Glucose (UA) Negative (Negative) Urine Ketones Trace H (Negative) Urine Blood Moderate H (Negative) Urine Nitrite Negative (Negative) Urine Bilirubin Negative (Negative) Urine Urobilinogen 8.0 (<2.0) mg/dL Ur Leukocyte Esterase Negative (Negative) Urine RBC 9 H (0-5) /hpf Urine WBC 4 (0-5) /hpf Ur Squamous Epith Cells 33 H (0-4) /hpf Urine Bacteria Occasional H (None) /hpf Urine Mucus Many H (None) /hpf Blood Type Blood Type Confirm Blood Type Recheck Bld Type Recheck Status Antibody Screen Spec Expiration Date 07/03/24 07/03/24 07/03/24 Range/Units 21:40 22:50 22:55 WBC (3.8-10.6) k/uL RBC (3.80-5.40) m/uL Hgb (11.4-16.0) gm/dL Hct (34.0-46.0) % MCV (80.0-100.0) fL MCH (25.0-35.0) pg MCHC (31.0-37.0) g/dL RDW (11.5-15.5) % Plt Count (150-450) k/uL MPV Neutrophils % % Lymphocytes % % Monocytes % % Eosinophils % % Basophils % % Neutrophils # (1.3-7.7) k/uL Lymphocytes # (1.0-4.8) k/uL Monocytes # (0-1.0) k/uL Eosinophils # (0-0.7) k/uL Basophils # (0-0.2) k/uL PT (10.0-12.5) sec INR (<1.2) APTT (22.0-30.0) sec Sodium 135 L (137-145) mmol/L Potassium 3.1 L (3.5-5.1) mmol/L Chloride 102 (98-107) mmol/L Carbon Dioxide 25 (22-30) mmol/L Anion Gap 8 mmol/L BUN 8 (7-17) mg/dL Creatinine 0.52 (0.52-1.04) mg/dL Est GFR (CKD-EPI)AfAm >90 (>60 ml/min/1.73 sqM) Est GFR (CKD-EPI)NonAf >90 (>60 ml/min/1.73 sqM) Glucose 104 H (74-99) mg/dL Calcium 9.4 (8.4-10.2) mg/dL Total Bilirubin 0.3 (0.2-1.3) mg/dL AST 22 (14-36) U/L ALT 16 (4-34) U/L Alkaline Phosphatase 54 (38-126) U/L Total Protein 7.1 (6.3-8.2) g/dL Albumin 4.3 (3.5-5.0) g/dL Urine Color Urine Appearance (Clear) Urine pH (5.0-8.0) Ur Specific [place] (1.001-1.035) Urine Protein (Negative) Urine Glucose (UA) (Negative) Urine Ketones (Negative) Urine Blood (Negative) Urine Nitrite (Negative) Urine Bilirubin (Negative) Urine Urobilinogen (<2.0) mg/dL Ur Leukocyte Esterase (Negative) Urine RBC (0-5) /hpf Urine WBC (0-5) /hpf Ur Squamous Epith Cells (0-4) /hpf Urine Bacteria (None) /hpf Urine Mucus (None) /hpf Blood Type A Positive Blood Type Confirm A Positive Blood Type Recheck No Previous Record Bld Type Recheck Status CABO Indicated Antibody Screen NEGATIVE Spec Expiration Date 07/06/20242349 Disposition Clinical Impression: Twin gestation in first trimester, Threatened miscarriage, Subchorionic hemorrhage, Hypokalemia, Asymptomatic bacteriuria Disposition: HOME SELF-CARE Condition: Good Instructions (If sedation given, give patient instructions): Threatened Miscarriage (ED) Additional Instructions: Labs remarkable for low potassium as well as asymptomatic bacteriuria in your urine. Recommend repeat labs and urinalysis within the next 1 to 2 weeks. You have a threatened miscarriage with a subchorionic hemorrhage. Your twin gestation. Follow-up with CORRECTIONAL CLASSIFICATION COUNSELOR for further monitoring of this. Return if worsening bleeding. Follow-up with PCP and CORRECTIONAL CLASSIFICATION COUNSELOR if possible in the next 1 to 3 days. Return if any concerns or worsening bleeding. Prescriptions: Nitrofurantoin Monohyd/M-Cryst [Macrobid] 100 mg PO Q12HR 3 Days #6 cap Is patient prescribed a controlled substance at d/c from ED?: No Referrals: None,Stated [Primary Care Provider] - 1-2 days Manuel Crowder MD [STAFF PHYSICIAN] - 1-2 days Time of Disposition: 00:05
[2024-07-03 21:56] LABS: Basophils % (A) 0 %; Eosinophils # (A) 0.1 k/uL (0-0.7); Eosinophils % (A) 1 %; HCT 33.4 % (34.0-46.0); HGB 11.5 gm/dL (11.4-16.0); Lymphocytes # (A) 1.6 k/uL (1.0-4.8); Lymphocytes % (A) 19 %; MCH 29.3 pg (25.0-35.0); MCHC 34.6 g/dL (31.0-37.0); MCV 84.9 fL (80.0-100.0); Mean Platelet Volume 7.9; Monocytes # (A) 0.5 k/uL (0-1.0); Monocytes % (A) 6 %; Neutrophils % (A) 71 %; Platelet Count 334 k/uL (150-450); RBC 3.93 m/uL (3.80-5.40); RDW 14.7 % (11.5-15.5); WBC 8.4 k/uL (3.8-10.6)
[2024-07-03 22:05] LABS: Appearance,Urine Cloudy (Clear); Bacteria,Urine Occasional /hpf; Bilirubin,Urine Negative (Negative); Blood,Urine Moderate (Negative); Color,Urine Yellow; Glucose,Urine (UA) Negative (Negative); Ketones,Urine Trace (Negative); Leukocyte Esterase,Urine Negative (Negative); Mucus,Urine Many /hpf; Nitrite,Urine Negative (Negative); Protein,Urine Trace (Negative); RBC,Urine 9 /hpf (0-5); Specific Gravity,Urine 1.029 (1.001-1.035); Squamous Epithelial Cell,Urine 33 /hpf (0-4); WBC,Urine 4 /hpf (0-5)
[2024-07-03 22:15] LABS: Partial Thromboplastin Time 22.4 sec (22.0-30.0); Prothrombin Time 10.7 sec (10.0-12.5)
[2024-07-03 22:20] VITALS: PULSE 88; RESP 18
[2024-07-03 22:26] LABS: ALT 16 U/L (4-34); AST 22 U/L (14-36); African American GFR (CKD) >90 (>60 ml/min/1.73 sqM); Albumin 4.3 g/dL (3.5-5.0); Alkaline Phosphatase 54 U/L (38-126); Anion Gap 8 mmol/L; Blood Urea Nitrogen 8 mg/dL (7-17); Calcium 9.4 mg/dL (8.4-10.2); Carbon Dioxide 25 mmol/L (22-30); Chloride 102 mmol/L (98-107); Glucose 104 mg/dL (74-99); Non-African American GFR(CKD) >90 (>60 ml/min/1.73 sqM); Potassium 3.1 mmol/L (3.5-5.1); Sodium 135 mmol/L (137-145); Total Bilirubin 0.3 mg/dL (0.2-1.3); Total Protein 7.1 g/dL (6.3-8.2)
--- NOTE | 2024-07-03 23:54 | US ---
EXAM: US First Trimester , Transabdominal CLINICAL HISTORY: ITS.REASON US Reason: vaginal bleeding, GA 10 weeks. TECHNIQUE: Real-time transabdominal obstetrical ultrasound of the maternal pelvis and a first trimester with image documentation. COMPARISON: No previous studies. FINDINGS: Gestation: Baby A has a Ambler-rump length measures 3.65 cm corresponding to 10 weeks 4 days. heart rate is 183 bpm. Baby B as a crown-rump length of 3.7 cm corresponding to 10 weeks 5 days. heart rate is 181 bpm. Placenta/amniotic fluid: A 2.4 x 1.7 2.8 cm area of subchorionic bleed is noted. Uterus/cervix: Uterus measures 1.6 x 6.9 x 0.2 cm. Cervix measures 4 cm and is closed. No myometrial mass. Ovaries: Right ovary measures 2.2 x 1.2 x 1.3 cm. Left ovary measures 3.2 x 2.1 x 1.7 cm. No mass. Free fluid: No free fluid. IMPRESSION: 1. Viable twin gestations are noted. 2. Subchorionic bleed which should be followed. 3. Cervix is closed.
[2024-07-04] MEDS: NITROFURANTOIN MONOHYD/M-CRYST 100 MG CAP PO STA (00:17)
[2024-07-04] MEDS: POTASSIUM CHLORIDE ER 20 MEQ TAB.ER PO STA (00:18)
[2024-07-04 00:30] VITALS: BP 107/65; TEMP 98.4
== END 2024-07-04 00:30 | disposition home or self-care (01) ==
LOC: EC 20:58
DX: O20.0 Threatened abortion (principal); E87.6 Hypokalemia; R82.71 Bacteriuria; Z3A.10 10 weeks gestation of pregnancy; Z88.0 Allergy status to penicillin; Z91.040 Latex allergy status; Z88.8 Allergy status to other drugs, medicaments and biological substances
CPT/HCPCS: 36415; 76801; 76802; 80053; 81001; 84702; 85025; 85610; 85730; 86850; 86900; 86901; 99284

== ENCOUNTER 2024-08-25 00:49 | Outpatient (CLI) | payer OTHER ==
[2024-08-25 02:09] VITALS: BP 124/69; PULSE 128; RESP 16; TEMP 98.6
--- NOTE | 2024-09-10 00:04 | P.MSEPDOC ---
Presenting Problems - Arrival Data Date of Arrival on Unit: 08/25/24 Time of Arrival on Unit: 00:50 Mode of Transport: Ambulatory - Complaint OB-Reason for Admission/Chief Complaint: Rule Out SROM Comment: Pt states she was sitting at dining room table and felt fluid gush at 2200. She states she chaged her pants about an hour later at 2300 felt anouther gush Medical History - Information : 7 Para: 4 Term: 3 : 1 Number of Living Children: 4 - Gestational Age Gestational Age by CARY (wks/days): 18 Weeks and 2 Days - History Complications: Multiple Review of Systems - Review of Systems Constitutional: No problems Breast: No problems ENT: No problems Cardiovascular: No problems Respiratory: No problems Gastrointestinal: No problems Genitourinary: No problems Musculoskeletal: No problems Neurological: No problems Skin: No problems Vital Signs - Temperature Temperature: 98.6 F Temperature Source: Temporal Artery Scan - Pulse Pulse Oximetery Pulse Rate: 128 Pulse Assessment Method: Pulse Oximetry - Respirations Respiratory Rate: 16 Oxygen Delivery Method: Room Air O2 Sat by Pulse Oximetry: 98 - Blood Pressure Sitting Blood Pressure: 124/69 Blood Pressure Mean: 87 Blood Pressure Source: Automatic Cuff Physician Notification - Physician Notified Physician Notified Date: 08/25/24 Physician Notified Time: 01:04 Physician: Maneul Crowder Order Received: Yes - Notification Comment Comment: Call placed to Dr Crowder regarding this patient. Report given of + amnisure. Dr Crowder is in the hospital and coming out to talk to this patient. Dr Crowder at the bedside with patient. Discussing possibility of transfer and is going to call [facility]. Decision for patient to go home and go to [facility] tomorrow on her own was made between patient and Dr Crowder. Order received to discharge patient home. Maternal Triage Index - Maternal Triage Index Presenting for scheduled procedure w/no complaint: No - Stat/Priority 1 Stat Priority 1: No - Urgent/Priority 2 Urgent Priority 2: No - Prompt/Priority 3 Prompt Priority 3: Yes Criteria Met for Priority 3: Pt states she was sitting at dining room table and felt fluid gush at 2200. She states she chaged her pants about an hour later at 2300 felt another gush. 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
== END 2024-08-25 01:55 ==
LOC: FBPOP 00:49
PROVIDERS: ATTEND Obstetrics & Gynecology
DX: O26.92 Pregnancy related conditions, unspecified, second trimester (principal); Z3A.18 18 weeks gestation of pregnancy; Z87.891 Personal history of nicotine dependence; Z91.040 Latex allergy status; Z88.0 Allergy status to penicillin; Z88.8 Allergy status to other drugs, medicaments and biological substances
CPT/HCPCS: 99213